=== PATIENT | female | born 1980 | race Caucasian/White ===

== ENCOUNTER 2016-11-26 10:00 | Emergency (ER) | payer MEDICAID ==
[~2016-11-26] VITALS: Wt 72.0 kg
[2016-11-26] MEDS ORDERED: KETOROLAC 30 MG INJ IV STA (11:15)
[2016-11-26 11:44] LABS: BASOPHILS % 0.5 % (0.0-2.0); EOSINOPHILS # 0.1 10^3/ul (0.0-0.5); EOSINOPHILS % 1.2 % (0.0-7.0); LYMPHOCYTES # 2.6 10^3/ul (0.8-2.9); LYMPHOCYTES % 24.1 % (15.0-51.0); MEAN CORPUSCULAR HEMOGLOBIN 24.6 pg (29.0-33.0); MEAN CORPUSCULAR HGB CONC 32.2 g/dl (32.0-37.0); MEAN CORPUSCULAR VOLUME 76.3 fl (82.0-101.0); MEAN PLATELET VOLUME 7.8 fl (7.4-10.4); MONOCYTE # 0.4 10^3/ul (0.3-0.9); MONOCYTES % 4.1 % (0.0-11.0); NEUTROPHIL # 7.6 10^3/ul (1.6-7.5); NEUTROPHILS % 70.1 % (39.0-77.0); PLATELET COUNT 374 10^3/UL (140-440); RED BLOOD COUNT 4.45 10^6/ul (4.20-5.40); RED CELL DISTRIBUTION WIDTH 14.2 % (11.5-14.5); UNCORRECTED WBC 10.8 10^3/ul (4.8-10.8); WHITE BLOOD COUNT 10.8 10^3/ul (4.8-10.8)
[2016-11-26 11:49] LABS: CONDITION 1; LH ANALYZER COMMENTS 1
[2016-11-26 11:54] LABS: ALBUMIN 4.2 g/dl (3.3-4.9); POTASSIUM 4.2 mmol/L (3.5-5.1)
[2016-11-26 11:57] LABS: ALBUMIN/GLOBULIN RATIO 1.16; BILIRUBIN,INDIRECT 0.2 mg/dl (0-1.1); BILIRUBIN,TOTAL 0.2 mg/dl (0.2-1.3); CALCIUM 9.3 mg/dl (8.4-10.2); CREATININE 0.65 mg/dl (0.44-1.00); TOTAL PROTEIN 7.8 g/dl (6.1-8.1)
[2016-11-26 11:59] LABS: ADD UMIC NO; URINE BILIRUBIN (Dip) NEGATIVE (NEGATIVE); URINE BLOOD (Dip) NEGATIVE (NEGATIVE); URINE COLOR LT. YELLOW (YELLOW); URINE GLUCOSE (Dip) NEGATIVE (NEGATIVE); URINE KETONES (Dip) NEGATIVE (NEGATIVE); URINE LEUKOCYTE ESTERASE (Dip) NEGATIVE (NEGATIVE); URINE NITRITE (Dip) NEGATIVE (NEGATIVE); URINE TOTAL PROTEIN (Dip) NEGATIVE (NEGATIVE); URINE UROBILINOGEN (Dip) 0.2 E.U./dL (0.1-1.0)
--- NOTE | 2016-11-26 12:52 | RADRPT ---
PROCEDURE: XR Lumbar Spine. CLINICAL INDICATION: Back pain. TECHNIQUE: Three views. AP, lateral and cone-down lateral view of the lumbar spine were obtained. COMPARISON: No prior studies are available for comparison. FINDINGS: There is normal stature and alignment of the vertebrae. There is no fracture. There is no lytic or blastic lesion. The disk height is normal. The paravertebral soft tissues are unremarkable. IMPRESSION: 1. Unremarkable images of the lumbar spine. RPTAT: QQ .Rajeev Mckeon MD, Date Time Electronically viewed and signed by .Rajeev Mckeon MD, on 11/26/2016 12:51 .R/
[2016-11-26] MEDS ORDERED: IBUP-1542 PO (13:16)
[2016-11-26] MEDS ORDERED: TRAM50TA2 PO (13:16)
--- NOTE | 2016-11-26 13:21 | ERD ---
ER Documentation Chief Complaint Date/Time DATE: 11/26/16 TIME: 13:19 Chief Complaint hematuria and low back pain and abdominal pain with fevers. HPI This 36-year-old female presents with low back pain for last 3 days. She has subjective fevers but no measured temperature. She states that she had some hematuria last week but none currently. She denies dysuria. She is currently on her menstrual period. ROS All systems reviewed and are negative except as per history of present illness. Medications Home Meds Active Scripts Tramadol HCl (Tramadol HCl) 50 Mg Tablet, 50 MG PO Q4 Y for PAIN, #20 TAB Prov:TRESA KNIGHT MD 11/26/16 Ibuprofen* (Motrin*) 600 Mg Tab, 600 MG PO Q6, #20 TAB Prov:TRESA KNIGHT MD 11/26/16 PMhx/Soc Medical and Surgical Hx: pt denies Medical Hx, pt denies Surgical Hx Physical Exam Vitals Vital Signs Date Time Temp Pulse Resp B/P Pulse Ox O2 Delivery O2 Flow Rate FiO2 11/26/16 10:03 99.0 72 20 130/69 100 Physical Exam Const: [] Head: Atraumatic Eyes: Normal Conjunctiva ENT: Normal External Ears, Nose and Mouth. Neck: Full range of motion..~ No meningismus. Resp: Clear to auscultation bilaterally Cardio: Regular rate and rhythm, no murmurs Abd: Soft, non tender, non distended. Normal bowel sounds Skin: No petechiae or rashes Back: No midline or flank tenderness Ext: No cyanosis, or edema Neur: Awake and alert Psych: Normal Mood and Affect Result Diagram: 11/26/16 1120 11/26/16 1120 Results 24 hrs Laboratory Tests Test 11/26/16 11:20 Alanine Aminotransferase (ALT/SGPT) 44IU/L Albumin 4.2g/dl Albumin/Globulin Ratio 1.16 Alkaline Phosphatase 91IU/L Anion Gap 13 Aspartate Amino Transf (AST/SGOT) 28IU/L Basophils # 0.010^3/ul Basophils % 0.5% Blood Morphology Comment Blood Urea Nitrogen 8mg/dl Calcium Level 9.3mg/dl Carbon Dioxide Level 30mmol/L Chloride Level 103mmol/L Creatinine 0.65mg/dl Direct Bilirubin 0.00mg/dl Eosinophils # 0.110^3/ul Eosinophils % 1.2% Globulin 3.60g/dl Glucose Level 102mg/dl Hematocrit 34.0% Hemoglobin 11.0g/dl Indirect Bilirubin 0.2mg/dl Lipase 57U/L Lymphocytes # 2.610^3/ul Lymphocytes % 24.1% Mean Corpuscular Hemoglobin 24.6pg Mean Corpuscular Hemoglobin Concent 32.2g/dl Mean Corpuscular Volume 76.3fl Mean Platelet Volume 7.8fl Monocytes # 0.410^3/ul Monocytes % 4.1% Neutrophils # 7.610^3/ul Neutrophils % 70.1% Nucleated Red Blood Cells # 0.010^3/ul Nucleated Red Blood Cells % 0.0/100WBC Platelet Count 27729^3/UL Potassium Level 4.2mmol/L Red Blood Count 4.4510^6/ul Red Cell Distribution Width 14.2% Sodium Level 142mmol/L Total Bilirubin 0.2mg/dl Total Protein 7.8g/dl Urine Bilirubin NEGATIVE Urine Clarity CLEAR Urine Color LT. YELLOW Urine Glucose NEGATIVE% Urine Hemoglobin NEGATIVE Urine Ketones NEGATIVE Urine Leukocyte Esterase NEGATIVE Urine Nitrite NEGATIVE Urine Specific [place] 1.015 Urine Total Protein NEGATIVE Urine Urobilinogen 0.2 E.U./dL Urine pH 7.5 White Blood Count 10.810^3/ul Current Medications Medications (Trade) Dose Ordered Sig/Rob Route PRN Reason Start Time Stop Time Status Last Admin Dose Admin Ketorolac Tromethamine (Toradol) 30 mg ONCE STAT IV 11/26/16 11:15 11/26/16 11:16 DC 11/26/16 11:24 Procedures/MDM CBC shows normal WBC and hemoglobin of 11. CMP and lipase normal. Urine is negative for blood, leukocytes, nitrites, glucose. HCG is negative. Patient was given Toradol 30 mg IV. Patient has some tenderness in the right L4 -L5 area on serial exam and no abdominal tenderness or flank tenderness appreciated. Patient upon discussion of her laboratory results showed paperwork from a ER visit 2 days ago the results of a pelvic ultrasound that shows a small invasive lesion of the cervix. There is no acute abnormalities noted on patient's hospital reports. Patient presents with primary complaint of low back pain. She did not have an x-ray but given the findings on previous ultrasound lumbar spine x-ray was performed. X-ray LS-Spine 3V Interpreted by me: Bones: [No fracture] Joints: [No dislocation] Foreign body: [None]. Impression-normal lumbar spine. Patient presents with low back pain of uncertain etiology without evidence of sepsis, acute abdomen, UTI, or genitourinary etiology. She appears to most likely of musculoskeletal low back pain. She does have an abnormality noted on the cervix on a previous ultrasound and was advised to follow-up with [facility] as directed. She she does return for measured fevers, blood, worsening pain or abdominal pain or new worsening symptoms. The patient was stable with no new complaints during the ER course. Clinically, there is no current evidence to suggest meningitis, sepsis, acute abdomen, pneumonia, acute coronary syndrome, pulmonary embolism, or any other emergent condition appearing to require further evaluation or hospitalization. The patient should certainly return for any new or worsening symptoms per the aftercare instructions. They should otherwise follow-up with her primary care doctor for reevaluation this week. Departure Diagnosis: Primary Impression: Low back pain Chronicity: acute Back pain laterality: right Sciatica presence: without sciatica Qualified Code: M54.5 - Acute right-sided low back pain without sciatica Condition: Stable Patient Instructions: Back Pain (Acute Or Chronic) Referrals: [facility] [place] [id number]ABUSLEME JEFFREY [address] [place] [place] [id number] [facility] [address] [place] [address] [facility] [address] [facility] [address] [address] [address] [place] [address] [facility] [address] [place] [address] [id number] - [address] SALAS[address] MICA [address], [place] [address] DR DAVIS, [place]NA [address] [facility] [address], [place] [address] DR CHRISTIANSON, FARID [address] [place] [address] Additional Instructions: Examines normal hoy. Cheque otro vez con worrell doctor primario en el proximo willis or regresa para mas o nueva simptomas. TRESA KNIGHT MD Nov 26, 2016 13:21
== END 2016-11-26 13:27 | disposition home or self-care (01) ==
LOC: FTE 10:00
DX: M54.5 Low back pain (principal)
CPT/HCPCS: 36415; 72100; 80053; 81003; 83690; 85025; 96374; J1885; Z7502